=== PATIENT | female | born 1950 | race Caucasian/White ===

== ENCOUNTER → 2017-04-17 | Outpatient (CLI) | payer MEDICARE, OTHER ==
[~2017-04-17] MED LIST: APIX5TAB PO; METO25XL PO; MIRT15 PO
== END | disposition home or self-care (01) ==
LOC: RADPV 15:19
PROVIDERS: ATTEND Podiatrist Foot & Ankle Surgery
DX: M25.474 Effusion, right foot (principal)

== ENCOUNTER → 2017-06-13 | Outpatient (CLI) | payer MEDICARE, OTHER | END | disposition home or self-care (01) | LOC: RADPV 11:20 | DX: S92.321D Displaced fracture of second metatarsal bone, right foot, subsequent encounter for fracture with routine healing (principal); X58.XXXD Exposure to other specified factors, subsequent encounter ==

== ENCOUNTER → 2017-08-22 | Outpatient (CLI) | payer MEDICARE, OTHER | END | disposition home or self-care (01) | LOC: RADPV 13:39 | DX: M79.674 Pain in right toe(s) (principal); R26.2 Difficulty in walking, not elsewhere classified; M85.80 Other specified disorders of bone density and structure, unspecified site ==

== ENCOUNTER 2020-12-28 05:20 | Day surgery (SDC) | payer MEDICARE, OTHER ==
[2020-12-26 13:13] LABS: COVID AG,FIA SOURCE NASOPHARYNGEAL
[~2020-12-28] VITALS: Ht 170.2 cm; Wt 68.2 kg
[~2020-12-28 05:20] MED LIST changes: +KETOROLAC TROMETHAMINE 0.5% 5 ML OPHTHALMIC SOLUTION ONE; +MIRT-89 PO; -MIRT15 PO; +MOXIFLOXACIN HCL 0.5% 3 ML OPHTHALMIC SOLUTION ONE; +PHENYLEPHRINE HCL 2.5% 2 ML OPHTHALMIC SOLUTION ONE; +RINGERS SOLUTION,LACTATED 500 ML IV ONE; +TROPICAMIDE 1% 2 ML OPHTHALMIC SOLUTION ONE
[2020-12-28] MEDS ORDERED: TETRACAINE HCL/PF 0.5% 4 ML OPHTHALMIC SOLUTION OD ONE (05:21)
[2020-12-28] MEDS ORDERED: CHONDR SULF A SOD/HYALURONATE 1.05 ML KIT IO ONE (05:21)
[2020-12-28] MEDS ORDERED: LIDOCAINE/PF 1% 2 ML VIAL CAUDAL ONE (05:21)
[2020-12-28] MEDS ORDERED: EPINEPHrine 1:1,000 [1 MG/ML] AMP ET ONE (05:21)
[2020-12-28] MEDS ORDERED: POVIDONE-IODINE 10% 15 ML SOLUTION UD TP ONE (05:21)
[2020-12-28] MEDS ORDERED: BALANCED SALT 15 ML OPHTHALMIC IRRIG.SOLN IO ONE (05:21)
[2020-12-28] MEDS: PHENYLEPHRINE HCL 2.5% 2 ML OPHTHALMIC SOLUTION OD SCH ×3 (05:57→06:07)
[2020-12-28] MEDS: TROPICAMIDE 1% 2 ML OPHTHALMIC SOLUTION OD SCH ×3 (05:57→06:07)
[2020-12-28] MEDS: MOXIFLOXACIN HCL 0.5% 3 ML OPHTHALMIC SOLUTION OD SCH ×3 (05:57→06:07)
[2020-12-28] MEDS ORDERED: RINGERS SOLUTION,LACTATED 500 ML IV ONE (06:00)
[2020-12-28] MEDS ORDERED: KETOROLAC TROMETHAMINE 0.5% 5 ML OPHTHALMIC SOLUTION OD SCH (06:00)
[2020-12-28] MEDS ORDERED: MIDAZOLAM HCL 2 MG/2 ML VIAL IVP ONE (12:00)
[2020-12-28] MEDS ORDERED: FentaNYL CITRATE PF 100 MCG/2 ML VIAL IVP ONE (12:00)
== END 2020-12-28 08:15 | disposition home or self-care (01) ==
LOC: SURGERY 05:20
PROVIDERS: ATTEND Ophthalmology
DX: H25.11 Age-related nuclear cataract, right eye (principal); I10 Essential (primary) hypertension; Z79.82 Long term (current) use of aspirin; Z72.89 Other problems related to lifestyle; Z79.899 Other long term (current) drug therapy; Z98.890 Other specified postprocedural states
CPT/HCPCS: 66984; 87426; 93005; A9575; C9803; J0171; J2250; J3010; J3490; J7120; V2632

== ENCOUNTER 2021-01-25 07:16 | Day surgery (SDC) | payer MEDICARE, OTHER ==
[2021-01-24 09:43] LABS: COVID AG,FIA SOURCE NASOPHARYNGEAL
[~2021-01-25] VITALS: Ht 170.2 cm; Wt 68.2 kg
[~2021-01-25 07:16] MED LIST changes: +GABA-1216 PO; -MIRT-89 PO
[2021-01-25] MEDS ORDERED: TETRACAINE HCL/PF 0.5% 4 ML OPHTHALMIC SOLUTION OD ONE (07:17)
[2021-01-25] MEDS ORDERED: CHONDR SULF A SOD/HYALURONATE 1.05 ML KIT IO ONE (07:17)
[2021-01-25] MEDS ORDERED: LIDOCAINE/PF 1% 2 ML VIAL CAUDAL ONE (07:17)
[2021-01-25] MEDS ORDERED: POVIDONE-IODINE 10% 15 ML SOLUTION UD TP ONE (07:17)
[2021-01-25] MEDS ORDERED: EPINEPHrine 1:1,000 [1 MG/ML] AMP ET ONE (07:17)
[2021-01-25] MEDS: PHENYLEPHRINE HCL 2.5% 2 ML OPHTHALMIC SOLUTION OS SCH ×3 (08:27→08:40)
[2021-01-25] MEDS: MOXIFLOXACIN HCL 0.5% 3 ML OPHTHALMIC SOLUTION OS SCH ×3 (08:27→08:40)
[2021-01-25] MEDS: KETOROLAC TROMETHAMINE 0.5% 5 ML OPHTHALMIC SOLUTION OS SCH ×3 (08:28→08:40)
[2021-01-25] MEDS: TROPICAMIDE 1% 2 ML OPHTHALMIC SOLUTION OS SCH ×3 (08:28→08:40)
[2021-01-25] MEDS ORDERED: FentaNYL CITRATE PF 100 MCG/2 ML VIAL IVP ONE (12:00)
[2021-01-25] MEDS ORDERED: MIDAZOLAM HCL 2 MG/2 ML VIAL IVP ONE (12:00)
== END 2021-01-25 11:15 | disposition home or self-care (01) ==
LOC: SURGERY 07:16
PROVIDERS: ATTEND Ophthalmology
DX: H25.12 Age-related nuclear cataract, left eye (principal); I10 Essential (primary) hypertension; Z79.82 Long term (current) use of aspirin; Z72.89 Other problems related to lifestyle; Z79.899 Other long term (current) drug therapy; Z98.890 Other specified postprocedural states; Z88.8 Allergy status to other drugs, medicaments and biological substances
CPT/HCPCS: 66984; 87426; A9575; C9803; J0171; J2250; J3010; J3490; J7120; V2632; Q9967

== ENCOUNTER 2023-06-26 06:36 | Day surgery (SDC) | payer MEDICARE, OTHER ==
[~2023-06-26] VITALS: Ht 170.2 cm; Wt 70.0 kg
[~2023-06-26 06:36] MED LIST changes: +ACET250T31 PO; +CYAN-119 PO; -KETOROLAC TROMETHAMINE 0.5% 5 ML OPHTHALMIC SOLUTION ONE; +MECL-226 PO; -MOXIFLOXACIN HCL 0.5% 3 ML OPHTHALMIC SOLUTION ONE; -PHENYLEPHRINE HCL 2.5% 2 ML OPHTHALMIC SOLUTION ONE; -RINGERS SOLUTION,LACTATED 500 ML IV ONE; +SODIUM CHLORIDE 0.9% 1,000 ML ONE; -TROPICAMIDE 1% 2 ML OPHTHALMIC SOLUTION ONE
[2023-06-26] MEDS: SODIUM CHLORIDE 0.9% 1,000 ML IV ONE (08:33)
[2023-06-26 08:36] LABS: GLUCOMETER DEV NAME(LOC) SDS.; GLUCOSE,POINT OF CARE 117 MG/DL (70-110)
[2023-06-26] MEDS ORDERED: LIDOCAINE/PF 2% 5 ML SYRINGE IVP ONE (12:00)
[2023-06-26] MEDS ORDERED: PROPOFOL 1% 20 ML VIAL IVP ONE (12:00)
[2023-06-26] MEDS ORDERED: OXYGEN THERAPY IH SCH (20:00)
== END 2023-06-26 09:40 | disposition home or self-care (01) ==
LOC: SURGERY 06:36 → EEVIPCON 08:30 → SURGERY 09:40
PROVIDERS: ATTEND Specialist
DX: D12.3 Benign neoplasm of transverse colon (principal); K57.30 Diverticulosis of large intestine without perforation or abscess without bleeding; Z79.899 Other long term (current) drug therapy; Z87.440 Personal history of urinary (tract) infections; Z86.010 Personal history of colon polyps; F32.A Depression, unspecified; K21.9 Gastro-esophageal reflux disease without esophagitis; E78.5 Hyperlipidemia, unspecified; I10 Essential (primary) hypertension; G47.00 Insomnia, unspecified; Z98.890 Other specified postprocedural states; Z79.82 Long term (current) use of aspirin
CPT/HCPCS: 45385; 93005; 82962; 88305; C1769; J2704; J3490; J7030